=== PATIENT | female | born 2000 | race Caucasian/White ===

== ENCOUNTER 2023-06-12 06:49 | Inpatient (IN) | payer OTHER ==
[~2023-06-12] VITALS: Ht 167.6 cm; Wt 92.2 kg
[2023-06-12] VITALS (62 sets, daily range): BP systolic 83–184; BP diastolic 50–97; O2SAT 97–100
[~2023-06-12 06:49] MED LIST: ACET-910 PO; ALBU8.5H INH; CARA1TAB6 PO; PRENTAB7 PO; TUMS500C PO
[2023-06-12] MEDS ORDERED: TUMS500C PO (07:11)
[2023-06-12] MEDS ORDERED: COLA100C5 PO (07:12)
[2023-06-12] MEDS ORDERED: HOME MED LIST COMPLETE! XX SCH (07:15)
[2023-06-12] MEDS ORDERED: METHYLERGONOVINE MALEATE 0.2MG/ML 1ML VIAL IM PRN (08:30)
[2023-06-12] MEDS ORDERED: LACTATED RINGER'S 1000 ML IV STA (08:30)
[2023-06-12] MEDS ORDERED: LIDOCAINE 1% MDV 20ML VIAL INFIL PRN (08:30)
[2023-06-12] MEDS ORDERED: OXYTOCIN INJ 10UNITS/ML 1ML VIAL IM PRN (08:30)
[2023-06-12] MEDS ORDERED: OXYTOCIN DRIP 30 UNITS in IV 1 EA IV PRN ×6 (08:30)
[2023-06-12] MEDS ORDERED: TRANEXAMIC ACID INJection 1,000 MG in NS 100 ML IV PRN (08:30)
[2023-06-12] MEDS ORDERED: CARBOPROST TROMETHAMINE 250 MCG/ML AMP IM PRN (08:30)
[2023-06-12 09:26] LABS: APPEARANCE, URINE CLEAR (CLEAR); BACTERIA, URINE AUTO NEGATIVE (NEGATIVE); BILIRUBIN, URINE AUTO NEGATIVE (NEGATIVE); BLOOD, URINE BLOOD 1+ (NEGATIVE); COLOR, URINE YELLOW (YELLOW); GLUCOSE, URINE (UA) AUTO NEGATIVE (NEGATIVE); KETONE, URINE AUTO NEGATIVE (NEGATIVE); LEUKOCYTE ESTERASE, URINE AUTO TRACE (NEGATIVE); MUCUS, URINE SMALL (NEGATIVE); NITRITE, URINE AUTO NEGATIVE (NEGATIVE); PROTEIN, URINE AUTO NEGATIVE (NEGATIVE); RBC, URINE AUTO 2 /HPF (0-3); SPECIFIC GRAVITY URINE AUTO 1.009 (1.002-1.035); SQUAMOUS EPITHELIAL CELL UR AU 4 /HPF (0-6); UROBILINOGEN, URINE AUTO 0.2 mg/dL (0.0-2.0); WBC, URINE AUTO 2 /HPF (0-3)
[2023-06-12 09:29] LABS: HEMATOCRIT 39.9 % (36.0-47.0); HEMOGLOBIN 13.8 g/dl (12.0-15.5); MEAN CORPUSCULAR HGB CONC 34.6 g/dl (32.0-36.5); MEAN CORPUSCULAR VOLUME 86.7 fl (80.0-96.0); PLATELET COUNT, AUTOMATED 174 10^3/uL (150-450); WHITE BLOOD COUNT 10.8 10^3/uL (4.0-10.0)
[2023-06-12] MEDS: miSOPROStol 50MCG 1/2 TABLET PO SCH ×2 (09:43→14:28)
[2023-06-12 09:55] LABS: TOTAL PROTEIN,RANDOM URINE 8.1 MG/DL (0.0-14.0)
[2023-06-12 09:57] LABS: URIC ACID 5.4 MG/DL (3.1-7.8)
[2023-06-12 09:59] LABS: ALT/SGPT 25 U/L (7.0-40); AST/SGOT 25 U/L (<34); BILIRUBIN,TOTAL 0.5 MG/DL (0.3-1.2); CREATININE FOR GFR 0.52 MG/DL (0.55-1.30); GLOMERULAR FILTRATION RATE > 60.0 (>60); LDH LACTATE DEHYDROGENASE 207 U/L (120-246)
[2023-06-12 10:00] LABS: CREATININE,RANDOM URINE 45.8 MG/DL
[2023-06-12] MEDS: LR 1,000 ML IV SCH ×3 (11:06→22:28)
[2023-06-12] MEDS ORDERED: FENTANYL 2MCG/ML ROPIVACAINE 0.2% IN 0.9% NACL 100ML IVBAG As Ordered ONE (11:23)
[2023-06-12] MEDS ORDERED: EPIDURAL/PCA KEYS XX PRN (11:35)
[2023-06-12] MEDS ORDERED: LR 500 ML IV PRN (11:35)
[2023-06-12] MEDS ORDERED: ePHEDrine SULFATE 25 MG/5 ML(5MG/ML) SYRINGE IVP PRN (11:35)
[2023-06-12] MEDS ORDERED: diphenhydrAMINE 50MG/ML VIAL IV PRN (11:35)
[2023-06-12] MEDS ORDERED: ONDANSETRON 4MG 2ML VIAL IV PRN (11:35)
[2023-06-12] MEDS ORDERED: NALOXONE INJ 0.4MG/1ML VIAL IV PRN (11:35)
[2023-06-12] MEDS: FENTANYL/ROPIVACAINE/NACL BAG 100 ML EPIDURAL SCH ×2 (11:52→20:15)
[2023-06-12] MEDS ORDERED: MOM 30ML SUSPENSION UDC PO PRN (22:00)
[2023-06-12] MEDS ORDERED: ACETAMINOPHEN 500 MG TAB PO PRN (22:00)
[2023-06-12] MEDS ORDERED: RHOGAM 300MCG (1500IU) INJ IM SCH (22:00)
[2023-06-12] MEDS ORDERED: ALBUTEROL 90 MCG/ACT 8GM HFA INHALER INH PRN (22:00)
[2023-06-12] MEDS ORDERED: DOCUSATE SODIUM 100MG CAPSULE PO PRN ×2 (22:00)
[2023-06-12] MEDS ORDERED: DIBUCAINE 1% OINTMENT 30GM TOP PRN (22:00)
[2023-06-13 00:20] VITALS: BP 143/85; O2SAT 97
[2023-06-13] MEDS: IBUPROFEN 800 MG TAB PO PRN ×2 (04:57→22:48)
[2023-06-13 05:46] VITALS: BP 117/58; O2SAT 98
[2023-06-13] MEDS: PRENATAL VITAMINS CHEWABLE TABLET PO SCH (08:09)
[2023-06-13] MEDS ORDERED: PRENATAL VITAMINS CHEWABLE TABLET PO SCH (09:00)
[2023-06-13 18:00] VITALS: BP 136/60; O2SAT 98
[2023-06-14 06:00] VITALS: BP 125/59; O2SAT 96
[2023-06-14] MEDS: IBUPROFEN 800 MG TAB PO PRN (07:20)
[2023-06-14] MEDS: PRENATAL VITAMINS CHEWABLE TABLET PO SCH (07:21)
[2023-06-14] MEDS ORDERED: MEASLES,MUMPS,RUBELLA VACCINE INJ (MMR-II) SC.IMMUN ONE (09:00)
[2023-06-14 10:00] VITALS: BP 147/83; O2SAT 98
== END 2023-06-14 13:30 | disposition home or self-care (01) | DRG 807 ==
LOC: M LDO 06:49 → M LDI 08:28 → M OBS 23:44
PROVIDERS: ADMIT Obstetrics & Gynecology; ATTEND Obstetrics & Gynecology
PROC: 10E0XZZ Delivery of Products of Conception, External Approach (ICD-10-PCS; principal; 2023-06-12)
PROC: 0HQ9XZZ Repair Perineum Skin, External Approach (ICD-10-PCS; 2023-06-12)
DX: O13.4 Gestational [pregnancy-induced] hypertension without significant proteinuria, complicating childbirth (principal); Z37.0 Single live birth; Z3A.39 39 weeks gestation of pregnancy; O70.0 First degree perineal laceration during delivery

== ENCOUNTER 2024-01-13 06:48 | Day surgery (SDC) | payer OTHER ==
[~2024-01-13] VITALS: Ht 167.6 cm; Wt 71.6 kg
[~2024-01-13 06:48] MED LIST changes: +COLA100C5 PO
[2024-01-13] MEDS ORDERED: MIDAZOLAM INJ 2MG/2ML VIAL As Ordered ONE (06:56)
[2024-01-13] MEDS ORDERED: fentaNYL 100 MCG/2 ML INJECTION As Ordered ONE (06:58)
[2024-01-13] MEDS: LR 1,000 ML IV SCH (07:08)
[2024-01-13 07:59] LABS: HCG, SERUM QUALITATIVE NEGATIVE (NEGATIVE)
[2024-01-13] MEDS: ceFAZolin SOD 2 GM in IV 1 EA IV ONE (08:05)
[2024-01-13] MEDS: LIDOCAINE 1% SDV 30ML VIAL As Ordered ONE (08:11)
[2024-01-13] MEDS ORDERED: ACETAMINOPHEN 1000MG 100ML IV BAG As Ordered ONE (08:18)
[2024-01-13] MEDS ORDERED: propofoL 200 MG/20 ML VIAL As Ordered ONE (08:18)
[2024-01-13] MEDS ORDERED: ONDANSETRON 4MG 2ML VIAL As Ordered ONE (08:18)
[2024-01-13] MEDS ORDERED: LIDOCAINE 2% 100MG/5ML SDV (FOR ANES.) As Ordered ONE (08:35)
[2024-01-13] MEDS ORDERED: KETOROLAC 60MG 2ML VIAL As Ordered ONE (08:45)
[2024-01-13] MEDS ORDERED: ONDANSETRON 4MG 2ML VIAL IV PRN (09:15)
[2024-01-13] MEDS: fentaNYL 100 MCG/2 ML INJECTION IV PRN (09:52)
[2024-01-13] MEDS: oxyCODONE 5MG TAB PO PRN (10:11)
[2024-01-13 10:23] VITALS: BP 133/86; TEMP 97.1; O2SAT 96
== END 2024-01-13 10:54 | disposition home or self-care (01) ==
LOC: M SDC 06:48
PROVIDERS: ATTEND Podiatrist Foot & Ankle Surgery
DX: M20.11 Hallux valgus (acquired), right foot (principal); M21.611 Bunion of right foot; F17.290 Nicotine dependence, other tobacco product, uncomplicated; Z90.49 Acquired absence of other specified parts of digestive tract
CPT/HCPCS: 28299; 36415; 76000; 81025; 84703; C1713; J0131; J0665; J0690; J1100; J1885; J2250; J2405; J3010

== ENCOUNTER 2024-06-29 08:46 | Day surgery (SDC) | payer OTHER ==
[~2024-06-29] VITALS: Ht 167.6 cm; Wt 74.7 kg
[2024-06-29] MEDS ORDERED: propofoL 200 MG/20 ML VIAL As Ordered ONE (09:50)
[2024-06-29] MEDS ORDERED: LIDOCAINE 2% 100MG/5ML SDV (FOR ANES.) As Ordered ONE (09:50)
[2024-06-29] MEDS ORDERED: ACETAMINOPHEN 1000MG/100ML IV BAG As Ordered ONE (09:50)
[2024-06-29] MEDS ORDERED: MIDAZOLAM INJ 2MG/2ML VIAL As Ordered ONE (09:50)
[2024-06-29] MEDS ORDERED: fentaNYL 100 MCG/2 ML INJECTION As Ordered ONE (09:50)
[2024-06-29] MEDS ORDERED: ONDANSETRON 4MG 2ML VIAL As Ordered ONE (09:50)
[2024-06-29] MEDS: LIDOCAINE 1% MDV 20ML VIAL As Ordered ONE (10:35)
[2024-06-29] MEDS: ceFAZolin SOD 2 GM in IV 1 EA IV ONE (10:45)
[2024-06-29] MEDS ORDERED: KETOROLAC 60MG 2ML VIAL As Ordered ONE (10:57)
[2024-06-29] MEDS ORDERED: NS 250 ML IV SCH (11:40)
[2024-06-29] MEDS ORDERED: fentaNYL 100 MCG/2 ML INJECTION IV PRN (11:40)
[2024-06-29] MEDS ORDERED: ONDANSETRON 4MG 2ML VIAL IV PRN (11:40)
[2024-06-29] MEDS ORDERED: HYDROMORPHONE HCL 0.5 MG/ 0.5 ML SYRINGE IV PRN (11:40)
[2024-06-29] MEDS: oxyCODONE 5MG TAB PO PRN (12:01)
[2024-06-29 13:15] VITALS: BP 119/68; TEMP 97.8; O2SAT 100
== END 2024-06-29 13:32 | disposition home or self-care (01) ==
LOC: M SDC 08:46
PROVIDERS: ATTEND Podiatrist Foot & Ankle Surgery
DX: M20.12 Hallux valgus (acquired), left foot (principal); M21.612 Bunion of left foot; F17.290 Nicotine dependence, other tobacco product, uncomplicated; Z90.89 Acquired absence of other organs
CPT/HCPCS: 28297; 28310; 76000; 81025; C1713; J0131; J0665; J0690; J1100; J1885; J2250; J2405; J3010

== ENCOUNTER → 2024-07-31 | Outpatient (CLI) | payer OTHER | LOC: M CARPUL 14:46 | PROVIDERS: ATTEND General Practice | DX: R06.00 Dyspnea, unspecified (principal) ==

== ENCOUNTER 2025-07-04 09:37 | Day surgery (SDC) | payer OTHER ==
[~2025-07-04] VITALS: Ht 167.6 cm; Wt 72.4 kg
[~2025-07-04 09:37] MED LIST changes: +ACETAMINOPHEN 1000MG/100ML IV BAG As Ordered ONE; +BUPR-670 PO; +FLUO40CA PO; +KETOROLAC 30 MG/ML 1 ML VIAL As Ordered ONE; +LIDOCAINE 2% 100 MG/5 ML SDV (FOR ANES.) As Ordered ONE; +MIDAZOLAM INJ 2 MG/2 ML VIAL As Ordered ONE; +ONDANSETRON 4MG/2ML VIAL As Ordered ONE; +dexAMETHasone 4 MG/ML 1 ML VIAL As Ordered ONE
[2025-07-04] MEDS ORDERED: LR 1,000 ML IV SCH (10:40)
[2025-07-04] MEDS: LIDOCAINE 1% MDV 20 ML VIAL As Ordered ONE (10:54)
[2025-07-04 12:05] VITALS: BP 122/58; TEMP 97; O2SAT 98
[2025-07-04] MEDS ORDERED: ceFAZolin SOD 2 GM IV ONCE IV ONE (16:35)
== END 2025-07-04 12:09 | disposition home or self-care (01) ==
LOC: M SDC 09:37
PROVIDERS: ATTEND Podiatrist Foot & Ankle Surgery
DX: T84.84XA Pain due to internal orthopedic prosthetic devices, implants and grafts, initial encounter (principal); Y79.2 Prosthetic and other implants, materials and accessory orthopedic devices associated with adverse incidents; F41.9 Anxiety disorder, unspecified; F32.A Depression, unspecified; Z79.899 Other long term (current) drug therapy; F17.220 Nicotine dependence, chewing tobacco, uncomplicated
CPT/HCPCS: 20680; 81025; J0131; J0665; J0688; J1100; J1885; J2250; J2405; J2765; J3010